=== PATIENT | male | born 1935 | race Caucasian/White ===

== ENCOUNTER 2019-07-05 11:53 | Outpatient (CLI) | payer MEDICARE, SELFPAY ==
--- NOTE | ~2019-07-05 | XR_ITS ---
[id number] 07/05/2019 12:14 Indication: Neck pain Procedure: 4 view cervical spine Comparison: No prior studies for comparison. Findings: There is accentuated cervical lordosis. There is degenerative anterolisthesis at C6-7. C7 i s not adequately visualized on the lateral view. No prevertebral soft tissue swelling. There is advan sana multilevel facet and uncinate hypertrophy. Lung apices are normal. Impression: 1: Moderate cervical spondylosis. Limited visualization of C7. Reviewed, dictated and finalized at location A. Impression: 1: Moderate cervical spondylosis. Limited visualization of C7.
--- NOTE | ~2019-07-05 | XR_ITS ---
XR shoulder RT min 2V 07/05/2019 12:14 Indication: Right shoulder pain Procedure: 4 views right shoulder Comparison: 10/21/2007 Findings: Mild polyarticular osteoarthritis of the right shoulder. No fracture or traumatic malalignm ent. No significant soft tissue abnormality. No foreign bodies. Impression: 1: Mild polyarticular osteoarthritis. Reviewed, dictated and finalized at location A. Impression: 1: Mild polyarticular osteoarthritis.
== END 2019-07-05 11:54 | disposition home or self-care (01) ==
PROVIDERS: PCP Family Medicine; Visit Provider Physician Assistant
DX: M25.519 Pain in unspecified shoulder (principal); M47.22 Other spondylosis with radiculopathy, cervical region; M19.011 Primary osteoarthritis, right shoulder
CPT/HCPCS: 72040; 73030

== ENCOUNTER 2022-02-22 09:36 | Emergency (ER) | payer MEDICARE, SELFPAY ==
[2022-02-22 09:54] VITALS: BP 146/65; PULSE 70; RESP 16; TEMP 36.1; O2SAT 98
--- NOTE | 2022-02-22 09:58 | ED.SKABFB ---
HPI - Skin/Abscess/Foreign Bdy General Chief complaint: Skin/Abscess/Foreign Body Stated complaint: rash Time Seen by Provider: 02/22/22 09:55 Source: patient Mode of arrival: ambulatory Limitations: no limitations History of Present Illness HPI narrative: Mr. Uriostegui is an 86-year-old male patient presenting to the clinic today with complaints of a rash on his back, left side and left lower abdomen. He reports that these symptoms began either Thursday or Thursday. They have gradually been spreading. He reports pain over the rash. He denies any fever or chills Related Data Home Medications Medication Instructions Recorded Confirmed sodium bicarbonate 650 mg tablet 650 mg PO DAILY 10/02/20 02/22/22 Allergies Allergy/AdvReac Type Severity Reaction Status Date / Time No Known Allergies Allergy Verified 02/22/22 09:48 Review of Systems Review of Systems: Pertinent positives per HPI. Patient denies any fever, chills, headache, visual changes, dizziness, cough, runny nose, sore throat, shortness of breath, chest pain, palpitations, nausea, vomiting, diarrhea, constipation, abdominal pain, or any urinary issues. [facility] Past Medical History Medical History Acute bronchitis Family History Family History Mother Diabetes mellitus, Onset Age: 86 Family history of congestive heart failure, Onset Age: 86 Grandparent Diabetes mellitus Sibling Diabetes mellitus Other Family history of cardiovascular disease Family history of elevated blood lipids Family history of kidney disease Social History Social History Smoking status: Never smoker Alcohol intake: never Comments At the time of my signature, I reviewed and agree with the nursing past medical, surgical, social, and family history. There is no relevant family history pertinent to the patient complaint. Exam Narrative: General: Well-developed, well nourished, in no apparent distress Head: Normocephalic, atraumatic. Cardio: Regular rate and rhythm, s1 and s2 normal, no murmur appreciated. Resp: Clear to auscultation bilaterally, no rhonchi, rales, wheezing or rubs. Integumentary: [place], warm, and dry, intact, painful red base rash with vesicles to the left side of the low back, left lateral side, and left lower abdomen. Does not cross the dermatome Course Course Emergency Course: Portions of this record may have been created with voice recognition software. Level of Care: Express Care Visit Vital Signs Vital signs: Vital Signs Temperature 36.1 C L 02/22/22 09:54 Pulse Rate 70 02/22/22 09:54 Respiratory Rate 16 02/22/22 09:54 Blood Pressure 146/65 H 02/22/22 09:54 Pulse Oximetry 98 02/22/22 09:54 Temperature 36.1 C L 02/22/22 09:54 Pulse Rate 70 02/22/22 09:54 Respiratory Rate 16 02/22/22 09:54 Blood Pressure 146/65 H 02/22/22 09:54 Pulse Oximetry 98 02/22/22 09:54 Vital signs reviewed MDM - Skin/Abscess/Foreign Bdy MDM Narrative Medical decision making narrative: At the time of visit patient is resting comfortably on the exam table. I suspect patient has herpes zoster. Prescription for Valtrex, prednisone, and lidocaine cream was sent to the pharmacy. Patient is already on a prescription for gabapentin. Supportive measures were discussed with the patient he voiced understanding of discharge instructions and agrees to treatment plan. Differential Diagnosis Differential diagnosis: Likely herpes zoster, cellulitis and contact dermatitis Discharge Plan Discharge Clinical Impression: Herpes zoster Patient Disposition: Home, Self-Care Condition: Stable Instructions: Antibiotic Form, Shingles (ED) Additional Instructions: Take medications as prescribed-Valtrex and prednisone May take Tylenol/M
== END 2022-02-22 10:07 | disposition home or self-care (01) ==
PROVIDERS: Emergency Provider Nurse Practitioner Family; PCP Family Medicine
DX: B02.9 Zoster without complications (principal)
CPT/HCPCS: 99213; G0463

== ENCOUNTER 2022-04-21 08:27 | Outpatient (CLI) | payer MEDICARE, SELFPAY ==
[2022-04-21 19:51] LABS: Anion Gap 4 mmol/L (8-16); Blood Urea Nitrogen 50 mg/dL (9-20); Calcium 8.5 mg/dL (8.4-10.2); Carbon Dioxide 27 mmol/L (22-30); Chloride 107 mmol/L (98-107); Estimated Glomerular Filt Rate 23; Glucose 86 mg/dL (65-110); Phosphorus 4.4 mg/dL (2.5-4.5); Potassium 4.9 mmol/L (3.4-5.0); Sodium 138 mmol/L (137-145)
== END 2022-04-21 08:28 | disposition home or self-care (01) ==
LOC: ANHGOSHLAB 08:28
PROVIDERS: PCP Family Medicine; Visit Provider Internal Medicine Nephrology
DX: E87.5 Hyperkalemia (principal)
CPT/HCPCS: 36415; 80069

== ENCOUNTER 2022-07-15 08:42 | Outpatient (CLI) | payer MEDICARE, SELFPAY ==
[2022-07-15 18:59] LABS: Alanine Aminotransferase 13 U/L (6-50); Alkaline Phosphatase 144 U/L (38-126); Anion Gap 7 mmol/L (8-16); Aspartate Amino Transferase 20 U/L (17-59); Bilirubin,Total 0.4 mg/dL (0.2-1.3); Blood Urea Nitrogen 57 mg/dL (9-20); Calcium 8.8 mg/dL (8.4-10.2); Carbon Dioxide 23 mmol/L (22-30); Chloride 112 mmol/L (98-107); Cholesterol 186 mg/dL (0-200); Estimated Glomerular Filt Rate 22; Glucose 88 mg/dL (65-110); HDL Direct 64 mg/dL; Potassium 5.4 mmol/L (3.4-5.0); Sodium 142 mmol/L (137-145); Triglycerides 80 mg/dL (<150)
[2022-07-15 19:10] LABS: LDL Cholesterol Direct 96 mg/dL; Parathyroid Intact 91.1 pg/mL (7.5-53.5)
[2022-07-15 19:12] LABS: Creatinine Urine 66.7 mg/dL; Total Protein Urine Random 8 mg/dL; Ur Ttl Prot Creatinine Ratio 0.12 mg/mg (0-0.20)
[2022-07-15 19:20] LABS: Anion Gap 6 mmol/L (8-16); Blood Urea Nitrogen 56 mg/dL (9-20); Calcium 8.7 mg/dL (8.4-10.2); Carbon Dioxide 23 mmol/L (22-30); Chloride 113 mmol/L (98-107); Estimated Glomerular Filt Rate 21; Glucose 87 mg/dL (65-110); Phosphorus 4.3 mg/dL (2.5-4.5); Potassium 5.5 mmol/L (3.4-5.0); Sodium 142 mmol/L (137-145)
[2022-07-15 19:22] LABS: Vitamin D 25 Hydroxy 37.7 ng/mL
[2022-07-15 19:28] LABS: Thyroid Stimulating Hormone 0.584 uIU/mL (0.465-4.680)
[2022-07-15 19:37] LABS: Basophils Percent Auto 0.7 % (0.2-1.2); Eosinophils Absolute Auto 0.2 K/mm3 (0-0.3); Eosinophils Percent Auto 5.1 % (0-4.4); Hematocrit 33.3 % (42.0-52.0); Hemoglobin 10.1 g/dL (14.0-18.0); Immature Granulocyte Absolute 0.01 K/mm3 (0.00-0.031); Immature Granulocyte Percent A 0.2 % (0-0.5); Lymphocytes Absolute Auto 1.16 K/mm3 (0.9-3.2); Lymphocytes Percent Auto 25.6 % (18.3-44.2); Mean Corpuscular HGB Conc 30.3 g/dl (32-36); Mean Corpuscular Volume 102.1 fl (80-100); Mean Platelet Volume 11.2 fl (7.4-10.4); Monocytes Absolute Auto 0.4 K/mm3 (0.1-0.6); Monocytes Percent Auto 8.4 % (2.6-8.5); Neutrophils Absolute Auto 2.7 K/mm3 (1.3-6.7); Platelet Count Result 181 k/mm3 (150-375); Red Blood Count 3.26 M/mm3 (4.6-6.20); Red Cell Distribution Width 13.6 % (11.5-14.5); White Blood Count 4.5 K/mm3 (4.5-10.0)
== END 2022-07-15 08:43 | disposition home or self-care (01) ==
LOC: ANHGOSHLAB 08:43
PROVIDERS: Physician Assistant; PCP Family Medicine; Visit Provider Internal Medicine Nephrology
DX: I12.9 Hypertensive chronic kidney disease with stage 1 through stage 4 chronic kidney disease, or unspecified chronic kidney disease (principal); N18.4 Chronic kidney disease, stage 4 (severe); E78.2 Mixed hyperlipidemia; E55.9 Vitamin D deficiency, unspecified; N25.81 Secondary hyperparathyroidism of renal origin
CPT/HCPCS: 36415; 80053; 80061; 80069; 82306; 82570; 83970; 84156; 84443; 85025

== ENCOUNTER 2022-08-01 09:09 | Outpatient (CLI) | payer MEDICARE, SELFPAY ==
[2022-08-01 18:33] LABS: Anion Gap 7 mmol/L (8-16); Blood Urea Nitrogen 50 mg/dL (9-20); Calcium 8.4 mg/dL (8.4-10.2); Carbon Dioxide 23 mmol/L (22-30); Chloride 111 mmol/L (98-107); Estimated Glomerular Filt Rate 24; Glucose 83 mg/dL (65-110); Phosphorus 3.8 mg/dL (2.5-4.5); Sodium 141 mmol/L (137-145)
== END 2022-08-01 09:10 | disposition home or self-care (01) ==
LOC: ANHGOSHLAB 09:10
PROVIDERS: Internal Medicine Nephrology; PCP Family Medicine; Visit Provider Physician Assistant
DX: N18.4 Chronic kidney disease, stage 4 (severe) (principal); E87.5 Hyperkalemia
CPT/HCPCS: 36415; 80069

== ENCOUNTER 2022-08-15 13:11 | Outpatient (CLI) | payer MEDICARE, SELFPAY ==
--- NOTE | 2022-08-15 13:20 | ECHO_ITS ---
Patient Info Name: Angel Uriostegui Age: 87 years : 1935 Gender: Male Ht: 64 in Wt: 150 lbs BSA: 1.77 m2 HR: 58 bpm BP: 157 / 81 mmHg Heart Rhythm: Sinus Rhythm Technical Quality: Good Exam Date: 08/15/2022 1:30 PM Exam Location: [facility] Patient Status: Outpatient Admit Date: 08/15/2022 Staff Ordering Physician: Lenard Araya PA-C Enterprise Integration Developer: Shelley Bennett RDCS Attending Provider: Lenard Araya PA-C Referring Physician: Marshal MORELAND; Exam Type: CA echo doppler color flow Study Info Indications R01.1 - Cardiac murmur, unspecified Complete two-dimensional, color flow and Doppler transthoracic echocardiogram is performed. Summary 1. Complete two-dimensional, color flow and Doppler transthoracic echocardiogram is performed. 2. Left ventricular chamber dimension is normal. 3. Left ventricular systolic function is normal, estimated at 60-65%. 4. The left ventricular diastolic function is abnormal. 5. E/e' 16 is elevated. 6. Left atrial chamber dimension is moderately enlarged. 7. There is severe aortic valve sclerosis. 8. There is mild to moderate aortic valve stenosis with a peak velocity of 263 cm/s, mean gradient of 17 mmHg, and aortic valve area of 1.5 cm2. 9. The mitral valve has moderately calcified annulus. 10. There is trace mitral valve regurgitation. 11. There is mild tricuspid valve regurgitation. 12. Mild pulmonary hypertension, estimated pulmonary arterial systolic pressure is 42 mmHg. 13. There is trace pulmonic regurgitation. Left Ventricle E/e' 16 is elevated. Left ventricular chamber dimension is normal. Left ventricular systolic function is normal, estimated at 60-65%. The left ventricular diastolic function is abnormal. Right Ventricle Right ventricular systolic function is normal and with normal TAPSE 2.4 cm. Right ventricular chamber dimension is normal. Left Atria Left atrial chamber dimension is moderately enlarged. Right Atria Right atrial chamber dimension is normal. Aortic Valve The aortic valve is trileaflet. There is severe aortic valve sclerosis. There is mild to moderate aortic valve stenosis with a peak velocity of 263 cm/s, mean gradient of 17 mmHg, and aortic valve area of 1.5 cm2. There is no aortic valve regurgitation. Pulmonic Valve There is trace pulmonic regurgitation. Mitral Valve The mitral valve has moderately calcified annulus. There is no mitral valve stenosis. There is trace mitral valve regurgitation. Tricuspid Valve There is mild tricuspid valve regurgitation. Mild pulmonary hypertension, estimated pulmonary arterial systolic pressure is 42 mmHg. Pericardium/Pleural There is no pericardial effusion. Inferior Vena Cava Normal inferior vena cava with >50% collapse upon inspiration consistent with normal right atrial pressure, 5 mmHg. Aorta The aortic root size at the sinus of Valsalva is normal. Left Ventricular Outflow Tract Name Value Normal LVOT 2D LVOT Diameter 2.0 cm LVOT Doppler LVOT Peak Gradient 5 mmHg LVOT Mean Gradient 2 mmHg LVOT VTI 31 cm LVOT VTI/AV VTI Ratio 0.5
== END 2022-08-15 13:12 | disposition home or self-care (01) ==
LOC: ANHCARD 13:11
PROVIDERS: PCP Family Medicine; Visit Provider Physician Assistant
DX: R01.1 Cardiac murmur, unspecified (principal); I36.1 Nonrheumatic tricuspid (valve) insufficiency; I27.20 Pulmonary hypertension, unspecified
CPT/HCPCS: 93306

== ENCOUNTER 2022-11-28 08:14 | Outpatient (CLI) | payer MEDICARE, SELFPAY ==
[2022-11-28 17:01] LABS: Creatinine Urine 65.4 mg/dL; Total Protein Urine Random 22 mg/dL; Ur Ttl Prot Creatinine Ratio 0.34 mg/mg (0-0.20)
[2022-11-28 20:16] LABS: Anion Gap 7 mmol/L (8-16); Blood Urea Nitrogen 48 mg/dL (9-20); Calcium 8.5 mg/dL (8.4-10.2); Carbon Dioxide 25 mmol/L (22-30); Chloride 109 mmol/L (98-107); Estimated Glomerular Filt Rate 22; Glucose 81 mg/dL (65-110); Phosphorus 4.5 mg/dL (2.5-4.5); Potassium 4.4 mmol/L (3.4-5.0); Sodium 141 mmol/L (137-145)
== END 2022-11-28 08:15 | disposition home or self-care (01) ==
PROVIDERS: PCP Family Medicine; Visit Provider Internal Medicine Nephrology
DX: I12.9 Hypertensive chronic kidney disease with stage 1 through stage 4 chronic kidney disease, or unspecified chronic kidney disease (principal); N18.4 Chronic kidney disease, stage 4 (severe); E87.5 Hyperkalemia
CPT/HCPCS: 36415; 80069; 82570; 84156

== ENCOUNTER 2023-02-14 11:06 | Emergency (ER) | payer MEDICARE, SELFPAY ==
--- NOTE | 2023-02-14 11:09 | ED.GENADULT ---
HPI - General Adult General Chief complaint: Recheck/Abnormal Lab/Rx Stated complaint: Blood pressure Time Seen by Provider: 02/14/23 11:34 Source: patient, RN notes reviewed and old records reviewed Mode of arrival: ambulatory Limitations: no limitations History of Present Illness HPI narrative: 87-year-old male presents to the [facility] with concerns of his blood pressure. Patient reports that his blood pressures we was 180/80 and 180/82. Patient was concerned that his blood pressure is elevated came here to have it rechecked. On arrival blood pressure 205/86. States that his blood pressure has been 160 over 80s lately, states Dr. San is happy with that. Patient states that Dr. San took him off his blood pressure medications about 2 months ago. Has been monitoring it weekly. Related Data Allergies Allergy/AdvReac Type Severity Reaction Status Date / Time No Known Allergies Allergy Verified 02/14/23 11:21 Review of Systems Review of Systems: All systems reviewed & are unremarkable except as noted in HPI and below Constitutional: Constitutional: Reports no additional constitutional complaints Eyes: Eyes: Reports no additional eye complaints ENT: Reports system reviewed and no additional complaints, except as documented Cardiovascular: Cardiovascular: Reports no additional cardiovascular complaints, Denies chest pain and Denies dyspnea Respiratory: Respiratory: Reports no additional respiratory complaints, Denies chest congestion, Denies cough and Denies dyspnea Gastrointestinal: Gastrointestinal: Reports no additional gastrointestinal complaints, Denies abdominal pain, Denies nausea and Denies vomiting Musculoskeletal: Musculoskeletal: Reports no additional musculoskeletal complaints Integumentary/Breasts: Skin/Breast: Reports system reviewed and no additional complaints, except as docu Neurologic: Reports system reviewed and no additional complaints, except as documented Psychiatric: Psychiatric: Reports no additional psychiatric complaints Allergic/Immunologic: Allergic/Immunologic: Reports no additional allergic/immunologic complaints [facility] Past Medical History Medical History Acute bronchitis Atherosclerosis of aorta Benign hypertension Cervical radiculopathy Chronic kidney disease, stage 4 (severe) Low back pain 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 Other and unspecified hyperlipidemia Primary osteoarthritis, left shoulder Primary osteoarthritis, right shoulder Psychosexual dysfunction with inhibited sexual excitement Rosacea Tension-type headache, unspecified, not intractable Family History Family History Mother Diabetes mellitus, Onset Age: 86 Family history of congestive heart failure, Onset Age: 86 Grandparent Diabetes mellitus Sibling Diabetes mellitus Other Family history of cardiovascular disease Family history of elevated blood lipids Family history of kidney disease Social History Social History Smoking status: Never smoker Alcohol intake: never Substance use: never Lack of Transportation: No Lack of Food: Never True Current Housing: I Have Housing Concerned About Future Housing: No Difficulty Paying Gas/Electric Bills: No Difficulty Paying for Meds: No Currently Unemployed: No Education: High School Diploma/GED Difficulty w/ Childcare or Family Care: No Gender identity (if verbalized by the patient): Male Comments At the time of my signature, I reviewed and agree with the nursing past medical, surgical, social, and family history. There is no relevant family history pertinent to the patient complaint. Exam Const: General: cooperative, healthy appearing, comfortable, no acute distress, well developed, alert and w
[2023-02-14 11:20] VITALS: BP 205/86; PULSE 68; RESP 16; TEMP 36.7; O2SAT 100
[2023-02-14 11:21] VITALS: BP 205/86; PULSE 68; RESP 16; TEMP 36.7; O2SAT 100
[2023-02-14 11:53] VITALS: BP 190/78
== END 2023-02-14 11:53 | disposition short-term general hospital (02) ==
PROVIDERS: Emergency Provider Nurse Practitioner; PCP Family Medicine
DX: I16.0 Hypertensive urgency (principal); I12.9 Hypertensive chronic kidney disease with stage 1 through stage 4 chronic kidney disease, or unspecified chronic kidney disease; N18.4 Chronic kidney disease, stage 4 (severe)
CPT/HCPCS: 99212; G0463

== ENCOUNTER 2023-02-14 12:18 | Emergency (ER) | payer MEDICARE, SELFPAY ==
[2023-02-14] VITALS (12 sets, daily range): BP systolic 147–201; BP diastolic 58–92; PULSE 60–77; RESP 17–20; TEMP 36.4; O2SAT 99–100
--- NOTE | 2023-02-14 12:35 | ECG_ITS ---
Measurements Intervals [place] Rate: 56 P: 48 CO: 167 QRS: -27 QRSD: 86 T: 34 QT: 401 QTc: 389 Interpretive Statements SINUS BRADYCARDIA BORDERLINE LEFT AXIS DEVIATION [QRS AXIS < -20] OTHERWISE UNREMARKABLE ECG NO PREVIOUS ECG AVAILABLE FOR COMPARISON Electronically Signed On 02-14-2023 12:43:58 BACK HAND by Rizwan Orozco M.D.
[2023-02-14 12:42] LABS: Basophils Percent Auto 0.7 % (0.2-1.2); Eosinophils Absolute Auto 0.2 K/mm3 (0-0.3); Hematocrit 39.8 % (42.0-52.0); Hemoglobin 12.2 g/dL (14.0-18.0); Immature Granulocyte Absolute 0.01 K/mm3 (0.00-0.031); Immature Granulocyte Percent A 0.2 % (0-0.5); Lymphocytes Absolute Auto 1.08 K/mm3 (0.9-3.2); Lymphocytes Percent Auto 18.7 % (18.3-44.2); Mean Corpuscular HGB Conc 30.7 g/dl (32-36); Mean Corpuscular Hemoglobin 30.6 pg (26-34); Mean Corpuscular Volume 99.7 fl (80-100); Mean Platelet Volume 10.5 fl (7.4-10.4); Monocytes Absolute Auto 0.4 K/mm3 (0.1-0.6); Monocytes Percent Auto 7.4 % (2.6-8.5); Platelet Count Result 157 k/mm3 (150-375); Red Blood Count 3.99 M/mm3 (4.6-6.20); Red Cell Distribution Width 13.6 % (11.5-14.5); White Blood Count 5.8 K/mm3 (4.5-10.0)
--- NOTE | 2023-02-14 12:52 | ED.GENADULT ---
HPI - General Adult General Chief complaint: Recheck/Abnormal Lab/Rx Stated complaint: HTN Source: patient Mode of arrival: ambulatory Limitations: no limitations History of Present Illness HPI narrative: 87 years old white male drove himself to the emergency room from urgent care because of elevated blood pressure. Patient used to be on lisinopril which stopped 2 months ago because of elevated potassium, and was told at that time that he does not need blood pressure medication. Patient been checking his blood pressure once a week. Yesterday blood pressure was 185/80, today 186/80, patient got worried went to Urgent Care blood pressure was 200+ over 100+, referred to our emergency room. On arrival to the ED blood pressure is 201/92. Patient is asymptomatic. 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 Other and unspecified hyperlipidemia Primary osteoarthritis, left shoulder Primary osteoarthritis, right shoulder Psychosexual dysfunction with inhibited sexual excitement Rosacea Tension-type headache, unspecified, not intractable Family History Family History Mother Diabetes mellitus, Onset Age: 86 Family history of congestive heart failure, Onset Age: 86 Grandparent Diabetes mellitus Sibling Diabetes mellitus Other Family history of cardiovascular disease Family history of elevated blood lipids Family history of kidney disease Social History Social History Smoking status: Never smoker Alcohol intake: never Substance use: never Lack of Transportation: No Lack of Food: Never True Current Housing: I Have Housing Concerned About Future Housing: No Difficulty Paying Gas/Electric Bills: No Difficulty Paying for Meds: No Currently Unemployed: No Education: High School Diploma/GED Difficulty w/ Childcare or Family Care: No Gender identity (if verbalized by the patient): Male Exam Narrative: General appearance: Well-developed, well-nourished Skin: Normal color Head: Normocephalic, nontraumatic Eyes: Clear conjunctiva ENT: Oropharynx normal, ears normal, nose normal Neck: Supple, nontender Chest and respiratory: Airway patent, no respiratory distress, no accessory muscle use Heart: Regular rate/rhythm Abdomen: Soft, nontender, no organomegaly, quiet bowel sounds Vascular: Normal peripheral pulses, normal capillary refill. Musculoskeletal: Normal range of motion, nontender back Neurologic: Alert and oriented ?3, [employer] is normal as tested, no gross motor deficit Course Course Emergency Course: NO Reevaluation(s) Reevaluation #1: NO NEW CHANGES COMPARED TO ON ARRIVAL TO THE ED. Date: 02/14/23 Time: 15:11 Consultations Consultation #1: DR WU RECOMMENDS HYDRALAZINE 25 MG T.I.D., FAMILY PHYSICIAN FOLLOW-UP IN 5 DAYS Date: 02/14/23 Time: 15:10 Vital Signs Vital signs: Vital Signs Temperature 36.4 C 02/14/23 12:25 Pulse Rate 62 02/14/23 12:25 Respiratory Rate 20 02/14/23 12:25 Blood Pressure 201/92 H 02/14/23 12:25 Pulse Oximetry 100 1
[2023-02-14 12:54] LABS: Alanine Aminotransferase 17 U/L (6-50); Albumin Level 4.6 g/dL (3.5-5.1); Alkaline Phosphatase 160 U/L (38-126); Anion Gap 10 mmol/L (8-16); Aspartate Amino Transferase 25 U/L (17-59); Bilirubin,Total 0.5 mg/dL (0.2-1.3); Blood Urea Nitrogen 46 mg/dL (9-20); Carbon Dioxide 22 mmol/L (22-30); Chloride 111 mmol/L (98-107); Estimated CRCL calculation 15 ml/min; Estimated Glomerular Filt Rate 23; Glucose 94 mg/dL (65-110); Potassium 4.7 mmol/L (3.4-5.0); Sodium 143 mmol/L (137-145)
[2023-02-14] MEDS: hydrALAZINE HCL 20 MG/ML VIAL IV PUSH (13:11)
== END 2023-02-14 15:26 | disposition home or self-care (01) ==
PROVIDERS: Emergency Medicine; Emergency Provider Emergency Medicine; PCP Family Medicine
DX: I12.9 Hypertensive chronic kidney disease with stage 1 through stage 4 chronic kidney disease, or unspecified chronic kidney disease (principal); N18.4 Chronic kidney disease, stage 4 (severe); I70.0 Atherosclerosis of aorta; E78.5 Hyperlipidemia, unspecified; M19.012 Primary osteoarthritis, left shoulder; M19.011 Primary osteoarthritis, right shoulder; Z85.20 Personal history of malignant neoplasm of unspecified respiratory organ; R00.1 Bradycardia, unspecified
CPT/HCPCS: 36415; 80053; 85025; 93005; 96374; 99284; J0360

== ENCOUNTER 2023-04-04 08:17 | Outpatient (CLI) | payer MEDICARE, SELFPAY ==
[2023-04-04 09:23] LABS: Albumin Level 3.9 g/dL (3.5-5.1); Anion Gap 8 mmol/L (8-16); Blood Urea Nitrogen 56 mg/dL (9-20); Calcium 9.3 mg/dL (8.4-10.2); Carbon Dioxide 19 mmol/L (22-30); Chloride 114 mmol/L (98-107); Estimated Glomerular Filt Rate 21; Glucose 96 mg/dL (65-110); Phosphorus 4.2 mg/dL (2.5-4.5); Potassium 4.9 mmol/L (3.4-5.0); Sodium 141 mmol/L (137-145)
[2023-04-04 09:31] LABS: Vitamin D 25 Hydroxy 44.6 ng/mL
[2023-04-04 09:39] LABS: Creatinine Urine 58.8 mg/dL; Total Protein Urine Random 25 mg/dL; Ur Ttl Prot Creatinine Ratio 0.43 mg/mg (0-0.20)
[2023-04-04 10:37] LABS: Parathyroid Intact 67.2 pg/mL (7.5-53.5)
== END 2023-04-04 08:18 | disposition home or self-care (01) ==
LOC: ANHLAB 08:23
PROVIDERS: PCP Family Medicine; Visit Provider Internal Medicine Nephrology
DX: E55.9 Vitamin D deficiency, unspecified (principal); I12.9 Hypertensive chronic kidney disease with stage 1 through stage 4 chronic kidney disease, or unspecified chronic kidney disease; N18.4 Chronic kidney disease, stage 4 (severe); N25.81 Secondary hyperparathyroidism of renal origin
CPT/HCPCS: 36415; 80069; 82306; 82570; 83970; 84156

== ENCOUNTER 2023-07-31 10:46 | Outpatient (CLI) | payer MEDICARE, SELFPAY ==
[2023-07-31 15:38] LABS: Anion Gap 8 mmol/L (4-12); Blood Urea Nitrogen 50 mg/dL (9-20); Calcium 8.4 mg/dL (8.4-10.2); Carbon Dioxide 20 mmol/L (22-30); Chloride 113 mmol/L (98-107); Estimated Glomerular Filt Rate 22; Glucose 92 mg/dL (65-110); Phosphorus 4.3 mg/dL (2.5-4.5); Sodium 141 mmol/L (137-145)
[2023-07-31 16:26] LABS: Creatinine Urine 70.4 mg/dL; Total Protein Urine Random 32 mg/dL; Ur Ttl Prot Creatinine Ratio 0.45 mg/mg (0-0.20)
== END 2023-07-31 10:47 | disposition home or self-care (01) ==
LOC: ANHGOSHLAB 10:47
PROVIDERS: PCP Family Medicine; Visit Provider Internal Medicine Nephrology
DX: I12.9 Hypertensive chronic kidney disease with stage 1 through stage 4 chronic kidney disease, or unspecified chronic kidney disease (principal); N18.4 Chronic kidney disease, stage 4 (severe)
CPT/HCPCS: 36415; 80069; 82570; 84156

== ENCOUNTER 2023-12-07 15:51 | Outpatient (CLI) | payer MEDICARE, SELFPAY ==
[2023-12-07 17:16] LABS: Albumin Level 3.9 g/dL (3.5-5.1); Anion Gap 8 mmol/L (4-12); Blood Urea Nitrogen 49 mg/dL (9-20); Calcium 8.3 mg/dL (8.4-10.2); Carbon Dioxide 20 mmol/L (22-30); Chloride 112 mmol/L (98-107); Estimated Glomerular Filt Rate 22; Glucose 111 mg/dL (65-110); Phosphorus 4.5 mg/dL (2.5-4.5); Sodium 140 mmol/L (137-145)
[2023-12-07 17:27] LABS: Parathyroid Intact 108.4 pg/mL (14.5-75.2)
[2023-12-07 17:31] LABS: Creatinine Urine 94.3 mg/dL; Total Protein Urine Random 26 mg/dL; Ur Ttl Prot Creatinine Ratio 0.28 mg/mg (0-0.20)
[2023-12-07 17:32] LABS: Vitamin D 25 Hydroxy 45.7 ng/mL
== END 2023-12-07 15:52 | disposition home or self-care (01) ==
LOC: ANHGOSHLAB 15:52
PROVIDERS: PCP Family Medicine; Visit Provider Internal Medicine Nephrology
DX: I12.9 Hypertensive chronic kidney disease with stage 1 through stage 4 chronic kidney disease, or unspecified chronic kidney disease (principal); N18.4 Chronic kidney disease, stage 4 (severe); N25.81 Secondary hyperparathyroidism of renal origin; E55.9 Vitamin D deficiency, unspecified
CPT/HCPCS: 36415; 80069; 82306; 82570; 83970; 84156

== ENCOUNTER 2023-12-10 13:50 | Outpatient (CLI) | payer MEDICARE, SELFPAY ==
--- NOTE | ~2023-12-10 | DEXA_ITS ---
Bone Density Report Name: COLT CLINE Age: 88 Sex: Male Ethnicity: White Date of : 1935 Indication: hyperparathyroidism; end stage renal disease; Referring Provider: YUSUF GURROLA Study: Bone densitometry was performed. Exam Date: December 10, 2023 Accession number: [id number] Bone Density: Region BMD T-score Z-score Classification AP Spine(L1-L4) 1.089 0.0 1.3 Normal Femoral Neck (Left) 2.450 11.2 12.9 Normal Total Hip (Left) 2.458 9.4 10.7 Normal Femoral Neck (Right) 0.616 -2.3 -0.6 Osteopenia Total Hip (Right) 0.955 -0.5 0.7 Normal Femoral Neck Mean 1.533 4.4 6.1 Normal Total Hip Mean 1.706 4.5 5.7 Normal World Health Organization criteria for BMD impression classify patients as: Normal (T-score at or above -1.0), Osteopenia (T-score between -1.0 and -2.5), or Osteoporosis (T-score at or below -2.5). 10-year Fracture Risk(1): Major Osteoporotic Fracture 9.3% Hip Fracture 4.2% Reported Risk Factors: [place] (), Neck BMD=0.616, BMI=26.2 (1) FRAX(R) Version 3.08. Fracture probability calculated for an untreated patient. Fracture probability may be lower if the patient has received treatment. Clinical Information Provided by Patient: Has the following medical conditions: End stage renal disease, Hyperparathyroidism No regular weight bearing exercise Drinks caffeinated beverages Impression: The patient has low bone mass, based on the Right Femoral Neck T-score. Discussion: BONE DENSITY IS LOW AT ONE OR MORE SKELETAL SITES. This patient's lowest T-score is low at one or more skeletal sites. It meets the World Health Organization's (WHO) criteria for ?low bone mass? (T-score between -1.0 and -2.5). The patient's 10-year risk of fracture as calculated by FRAX is less than the threshold where pharmacological therapy is recommended by the National Osteoporosis Foundation (NOF). However, all treatment decisions require clinical judgment and consideration of individual patient factors, including patient preferences, comorbidities, previous drug use, risk factors not captured in the FRAX model (e.g., frailty, falls, vitamin D deficiency, increased bone turnover, interval significant decline in bone density) and possible under or overestimation of fracture risk by FRAX. The patient should follow a healthful lifestyle (good nutrition with adequate calcium and vitamin D, and appropriate weight-bearing exercise). Follow-Up: Consider repeating this study in 2 to 3 years to reassess this patient's status, or sooner if there is some new clinical indication. Reported by: WES on 12/10/2023 2:18:00 PM. Reviewed, dictated and finalized at location ADrea SPENCER
== END 2023-12-10 13:51 | disposition home or self-care (01) ==
PROVIDERS: PCP Family Medicine; Visit Provider Family Medicine
DX: M85.852 Other specified disorders of bone density and structure, left thigh (principal); M88.852 Osteitis deformans of left thigh; N18.30 Chronic kidney disease, stage 3 unspecified; N25.81 Secondary hyperparathyroidism of renal origin
CPT/HCPCS: 77080

== ENCOUNTER 2024-04-08 12:44 | Outpatient (CLI) | payer MEDICARE, SELFPAY ==
--- OUTSIDE RECORDS SUMMARY | 2024-04-08 12:54 | XMS_ITS | Clinical Summary ---
Author Organization [facility] Address [address] [place] [address] Care Team Providers Care Solar Tech Name Role Phone Unavailable Primary Care Provider Unavailabl e Social History Tobacco Use Types Packs/Day Years Used Date Smoking Tobacco: Never Assessed Sex and Gender Information Value Date Recorded Sex Assigned at Not on file Legal Sex Male 5:10 PM CDT Gender Identity Not on file Sexual Orientation Not on file Plan of Treatment Health Maintenance Due Date Last Done Comments DTaP, Tdap and Td Vaccines ( 1 - Tdap) 1956 Zoster Vaccines (1 of 2) 07/30/1987 Pneumococcal Vaccine: 65+ Ye ars (1 of 1 - PCV) 2002 RSV Immunization or 60+ Years (1 - 1-dose 75+ series) 2012 COVID-19 Vaccine ( - 2023-2 5 season) 2023 Influenza Adult (#1) 2023 Meningococcal B Vaccine Aged Out No l onger eligible based on patient's age to complete this topic Meningococcal Vaccine Aged Out No yasmin julianna eligible based on patient's age to complete this topic RSV Immunizations Under 20 Months Aged Out No longer eligible based on patient's age to complete this topic
--- OUTSIDE RECORDS SUMMARY | 2024-04-08 12:54 | XMS_ITS | Referral Summary ---
Author Organization [facility] [address] [place] Address [address] [place] [address] Care Team Providers Care Electromechanisms Design Drafter Name Role Phone Unknown, Notinfile Primary Care Provider Unavail able Allergies No known active allergies Medications bimatoprost (Lumigan) 0.01 % ophthalmic drops 04/19/2020 Ac tive docosahexaenoic acid-epa 120-180 mg capsule Take by mouth 08/26/2011 Active FLUoxetine (PROzac) 20 mg capsule TK 1 C PO D 08/17/2019 Active gabapentin (NEURONTIN) 300 mg capsule 11/27/2021 Active levothyroxine (SYNTHROID) 50 mcg tablet Take 50 mcg by mouth daily 09/24/2021 Active pravastatin (PRAVACHOL) 20 mg tablet Take 20 mg by mouth daily 09/24/2021 Active quinapriL-hydroc hlorothiazide (ACCURETIC) 10-12.5 mg per tablet Take 1 tablet by mouth daily 09/28/2021 Active sodium bicarbonate 650 mg tablet 10/08/2021 Active Active Problems No known active problems Social History Tobacco Use Types Packs/Day Years Used Date Smoking Tobacco: Never Assessed Sex and Gender Information Value Date Recorded Sex Assigned at Not on file 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 Gender Identity Not on file Sexual Orientation Not on file Last Filed Vital Signs Vital Sign Reading Time Taken Comments Blood Pressure 138/57 12/02/2021 2:07 PM CDT Pulse 90 12/02/2021 2:07 PM CDT Temperature 36.7 C (98.1 F) 12/02/2021 2:07 PM CDT Respiratory Rate 16 12/02/2021 2:07 PM CDT Oxygen Saturation 99% 12/02/2021 2:07 PM CDT Inhaled Oxygen Concentration - - Weight 66.2 kg (146 lb) 12/02/2021 2:07 PM CDT Height 162.6 cm (5' 4 ) 12/02/2021 2:07 PM CDT Body Mass Index 25.06 12/02/2021 2:07 PM CDT Plan of Treatment Not on file Insurance [facility] Care Teams Electromechanisms Design Drafter Relationship Specialty Start Date End Date Unknown, Notinfile PCP - General 12/02/21
--- OUTSIDE RECORDS SUMMARY | 2024-04-08 12:54 | XMS_ITS | Continuity of Care Document ---
Author Organization [facility] Address [address] [place] [address] [place] [address] Phone Care Team Providers Care Consulting Marine Engineer Name Role Phone Constantine Kumar Unavailable Unavailable [...] Diagnoses Date Provider Providers Copied on Encounter [facility], [address] [place] [address] [address], [place], [place], [id number], [place] tel:[phone] [facility] No Information 0 Stacy Fitch. 2421 [facility] [address], [address], [place]. tel:[phone] Referring Provider: Aria Arvizu OD, [address] [place] [address], [address]. tel:[phone] [facility], [address] [place] [address] [address], [place], [place], [id number], [place] tel:[phone] [facility] No Information 0 8-201 0 Krishnasamy Constantine. [address], [facility], . tel:[phone] Referring Provider: Aria Arvizu OD, [address] [place] [address], [address]. tel:[phone] [facility], [address] [place] [address] [address], [place], [place], [id number], tel:[phone] [facility] No Information Dec-2 3-200 9 Krishnasamy Constantine. [facility] [address], [facility], . tel:[phone] Referring Provider: Aria Arvizu OD, [address] [place] [address], [facility]. tel:[phone] [facility], [address] [place] [address] [address], [place], [id number], tel:[phone] [facility] No Information Dec-1 1-200 9 Krishnasamy Constantine. [facility] [address], [facility], [place]. tel:[phone] Referring Provider: Aria Arvizu OD, [address] [place] [address], [address]. tel:[phone] [facility], [address] [place] [address] [address], [place], [place], [id number], tel:[phone] [facility] No Information Dec-1 0-200 9 Krishnasamy Constantine. [facility] [address], [facility], [place]. tel:[phone] Referring Provider: Aria Arvizu OD, [address] [place] [address], [address]. tel:[phone] Office/outpat ient Visit, [facility], [address] [place] [address] [address], [place], [place], [id number], [place] tel:[phone] [facility] No Information 3-200 9 Krishnasamy Constantine. [address] [facility] [address], [place], [address], [place]. tel:[phone] Referring Provider: Constantine perkins, [address] [facility] [address], [place], [address]. tel:[phone] [facility], [address] [place] [address] [address], [place], [place], [address], [place] tel:[phone] [facility] No Information 6-200 8 Krishnasamy Constantine. [facility] [address], [place], [facility], [place]. tel:[phone] Referring Provider: Aria Arvizu OD, [address], [address]. tel:[phone] [facility], [address] [place] [address] [address], [place], [place], [address], [place] tel:[phone] [facility] No Information 1-200 8 Krishnasamy Constantine. [facility] [address], [address], [place]. tel:[phone] Referring Provider: Aria Arvizu OD, [address], [address]. tel:[phone] [facility], [address] [place] [address] [address], [place], [place], [address], [place] tel:[phone] [facility] No Information 0-200 8 Krishnasamy Constantine. [facility] [address], [address], [place]. tel:[phone] Referring Provider: Aria Arvizu OD, [address], [address]. tel:[phone] [facility], [address] [place], [place] [address] [address], [place], [place], [id number], [place] tel:[phone] [facility] No Information 8 Stacy Kellyhil. [address] [employer] [address], [address], [place]. tel:[phone] Referring Provider: Aria Arvizu , [address] [place], [address]. tel:[phone] Family History Family Member Type Diagnosis Age At Onset No Information Payers Payer name Insurance type Covered democrat ID Authoriza tion(s) No Information Social History [...]
--- OUTSIDE RECORDS SUMMARY | 2024-04-08 12:54 | XMS_ITS | Clinical Summary ---
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 Gender Identity Not on file Sexual Orientation Not on file Obstetrics History Last Filed Vital Signs Vital Sign Reading [...] 12/02/2021 2:07 PM CDT Plan of Treatment Health Maintenance Due Date Last Done Comments Depression Screening 1937 Fall Risk Assessment 1935 DTaP/Tdap/Td Vaccine (1 - Tdap) 1948 Hepatitis B Screening 07/30/1955 Zoster Vaccine (1 of 2) 07/30/1987 Well Visit 65+ 2002 Pneumococcal vaccine 65+ (2 of 2 - PPSV23 or PCV20) 06/12/2016 06/13/2015 Influenza Vaccine (#1) 2023 9, 06/13/2015, 11/14/2013 Insurance [employer] Care Teams Barrer And Tacker Relationship Specialty Start Date End Date Unknown, Notinfile PCP - General 12/02/21
--- OUTSIDE RECORDS SUMMARY | 2024-04-08 12:54 | XMS_ITS | Clinical Summary ---
Author Organization [facility] Address [address] [place] [address] Phone Care Team Providers Care Slasher Machine Operator Name Role Phone Rizwan San MD Primary Care Provider [phone] Allergies No known active allergies Medications Medication Sig Dispensed Refills Start Date End Date Status Multiple Vitamin (MULTI-DAY) tablet 1 tab/cap qday 08/26/2011 Ac tive omega-3 (FISH OIL) 1000 MG capsule 1 tab/cap qday 08/26/2011 Activ e pravastatin (PRAVACHOL) 20 MG tablet TK 1 T PO QHS 1 12/16/2018 Active quinapril-hydroCHLOROt hiazide (ACCURETIC) 10-12.5 MG per tablet TK 1 T PO ONCE A D 3 11/06/2018 Active gabapentin (NEURONTIN) 100 MG capsule TK 1 C PO D 08/22/2019 Active FLUoxetine (PROzac) 20 MG capsule TK 1 C PO D 08/17/2019 Active Lumigan 0.01 % ophthalmic drops 04/19/2020 Active levothyroxine (SYNTHROID) 50 MCG tablet Take 50 mcg by mouth 1 (one) time each day 08/21/2020 Active gabapentin (NEURONTIN) 300 MG capsule Take 600 mg by mouth every night 03/18/2021 Active sodium bicarbonate 650 MG tablet TAKE 1 TABLET(650 MG) BY MOUTH TWICE DAILY 60 tablet 6 12/16/2021 Active Active Problems Problem Noted Date Diagnosed Date Hyperkalemia 03/31/2018 Chronic kidney disease, stage 4 (severe) 016 Hypertensive chronic kidney disease with stage 1 through stage 4 chronic kidney disease, or unspecified chronic kidney disease 12/13/2014 Other hyperlipidemia 12/12/2014 Overview (05/15/2018): Converted unresolved ICD9, potential mismatch. Chronic kidney disease, stage 3 (moderate) 08/18 Essential (primary) hypertension 08/19/2011 Immunizations Name Administration Dates Next Due Influenza TIV (IM) 06/13/2015,11/14/2013 Influenza, Injectable, Quadrivalent 11/30/2018 Pneumococcal Conjugate 13-Valent 06/13/2015 Sars-cov-2, Unspecified 06/25/2020 Family History Medical History Relation Comments Diabetes mellitus Sibling Kidney disease Neg Hx Kidney stone Neg Hx Relation Status Comments Sibling Social History Tobacco Use Types Packs/Day Years Used Date Smoking Tobacco: Never Smokeless Tobacco: Never Alcohol Use Standard Drinks/Week Comments No 0 (1 standard drink = 0.6 oz pur e alcohol) Sex and Gender Information Value Date Recorded Sex Assigned at Not on file Gender Identity Not on file Sexual Orientation Not on file Last Filed Vital Signs Vital Sign Reading Time Taken Comments Blood Pressure 140/82 11/13/2021 11:44 AM CDT Pulse - - Temperature 36.8 C (98.3 F) 11/13/2021 11:44 AM CDT Respiratory Rate 18 11/13/2021 11:44 AM CDT Oxygen Saturation - - Inhaled Oxygen Concentration - - Weight 67.1 kg (148 lb) 11/13/2021 11:44 AM CDT Height 162.6 cm (5' 4 ) 11/13/2021 11:44 AM CDT Body Mass Index 25.4 11/13/2021 11:44 AM CDT Plan of Treatment Health Maintenance Due Date Last Done Comments Pneumococcal PPSV23/PCV13 65 + Years / High and Highest Risk (2 of 4 - PPSV23 or PCV20) 08/08/2015 06/13/2015 Influenza Vaccine (#1) 2023 06/13/2015, 2013 Care Teams Slasher Machine Operator Relationship Specialty Start Date End Date Rizwan San MD [address] [place] [address] PCP - General Internal Medicine 11/13/21
[2024-04-08 14:16] LABS: Anion Gap 11 mmol/L (4-12); Blood Urea Nitrogen 52 mg/dL (9-20); Calcium 8.4 mg/dL (8.4-10.2); Carbon Dioxide 20 mmol/L (22-30); Chloride 112 mmol/L (98-107); Estimated Glomerular Filt Rate 21; Glucose 93 mg/dL (65-110); Phosphorus 4.7 mg/dL (2.5-4.5); Potassium 5.1 mmol/L (3.4-5.0); Sodium 143 mmol/L (137-145)
[2024-04-08 15:12] LABS: Creatinine Urine 112.9 mg/dL; Total Protein Urine Random 46 mg/dL; Ur Ttl Prot Creatinine Ratio 0.41 mg/mg (0-0.20)
== END 2024-04-08 12:45 | disposition home or self-care (01) ==
LOC: ANHGOSHLAB 12:47
PROVIDERS: PCP Family Medicine; Visit Provider Internal Medicine Nephrology
DX: I12.9 Hypertensive chronic kidney disease with stage 1 through stage 4 chronic kidney disease, or unspecified chronic kidney disease (principal); N18.4 Chronic kidney disease, stage 4 (severe)
CPT/HCPCS: 36415; 80069; 82570; 84156

== ENCOUNTER 2024-08-04 14:14 | Outpatient (CLI) | payer MEDICARE, SELFPAY ==
--- OUTSIDE RECORDS SUMMARY | 2024-08-04 14:57 | XMS_ITS | Clinical Summary ---
Author Organization [facility] Address [address] [place] [address] Phone Care Team Providers Care Store Administrative Assistant Name Role Phone Rizwan San MD Primary Care Provider [phone] Allergies No known active allergies Medications Multiple Vitamin (MULTI-DAY) tablet 1 tab/cap qday 08/26/2011 Active omega-3 (FISH OIL) 1000 MG capsule 1 tab/cap qday 08/26/2011 Active pravastatin (PRAVACHOL) 20 MG tablet TK 1 T PO QHS 1 12/16/2018 Active quinapril-hydroCH LOROthiazide (ACCURETIC) 10-12.5 MG per tablet TK 1 T PO ONCE A D 3 11/06/2018 Active gabapentin (NEURONTIN) 100 MG capsule TK 1 C PO D 08/22/2019 Active FLUoxetine (PROzac) 20 MG capsule TK 1 C PO D 08/17/2019 Active Lumigan 0.01 % ophthalmic drops 04/19/2020 Ac tive levothyroxine (SYNTHROID) 50 MCG tablet Take 50 [...] (moderate) 08/18 Essential (primary) hypertension 08/19/2011 Immunizations Immunization Administration Dates Next Due Influenza TIV (IM) [...] at Not on file Legal Sex Male 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 MST Gender Identity Not on file Sexual Orientation [...] 11:44 AM CDT Height 162.6 cm (5' 4) 11/13/2021 11:44 AM CDT Body Mass Index 25.4 11/13/2021 11:44 AM CDT Plan of Treatment Health Maintenance Due Date Last Done Comments Pneumococcal PPSV23/PCV13 65 + Years / Low and Medium Risk (2 of 3 - PPSV23) 06/12/2016 06/13/2015 Influenza Vaccine (Season Ended) 2024 06/13/19 16, 11/14/2013 Insurance [employer] Care Teams Store Administrative Assistant Relationship Specialty Start Date End Date Rizwan San MD [address] [place] [phone] PCP - General Internal Medicine 11/13/21
--- OUTSIDE RECORDS SUMMARY | 2024-08-04 14:57 | XMS_ITS | Referral Summary ---
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
--- OUTSIDE RECORDS SUMMARY | 2024-08-04 14:57 | XMS_ITS | Clinical Summary ---
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
--- OUTSIDE RECORDS SUMMARY | 2024-08-04 14:57 | XMS_ITS | Continuity of Care Document ---
Author Organization [facility] Address [address] [place] [address] [place] [address] Phone Care Team Providers Care Cyber Analyst Name Role Phone Constantine Kumar Unavailable Unavailable [...] Diagnoses Date Provider Providers Copied on Encounter [facility], [address] [place] [address] [address], [place], [place], [id number], [place] tel:[phone] [facility] No Information 0 Stacy Fitch. [address] [facility] [address], [address], [place]. tel:[phone] Referring Provider: Aria Arvizu OD, [address] [place] [address], [address]. tel:[phone] [facility], [address] [place] [address] [address], [place], [place], [address], [place] tel:[phone] [facility] No Information 0 8-201 0 Krishnasamy Constantine. [address], [facility], . tel:[phone] Referring Provider: Aria Arvizu OD, [address] [place] [address], [address]. tel:[phone] [facility], [address] [place] [address] [address], [place], [place], [id number], tel:[phone] [facility] No Information Dec-2 3-200 9 Krishnasamy Constantine. [facility] [address], [facility], . tel:[phone] Referring Provider: Aria Arvizu OD, [address] [place] [address], [facility]. tel:[phone] [facility], [address] [place] [address] [address], [place], [id number], tel:[phone] [facility] No Information Dec-1 1-200 9 Krishnasamy Constantine. [facility] [address], [facility], [place]. tel:[phone] Referring Provider: Aria Arvizu OD, [address] [place] [address], [address]. tel:[phone] [facility], [address] [place] [address] [address], [place], [place], [address], tel:[phone] [facility] No Information Dec-1 0-200 9 Krishnasamy Constantine. [facility] [address], [facility], [place]. tel:[phone] Referring Provider: Aria Arvizu OD, [address] [place] [address], [address]. tel:[phone] Office/outpat ient Visit, [facility], [address] [place] [address] [address], [place], [place], [address], [place] tel:[phone] [facility] No Information 3-200 9 Krishnasamy Constantine. [address] [facility] [address], [place], [address], [place]. tel:[phone] Referring Provider: Constantine perkins, [address] [facility] [address], [place], [address]. tel:[phone] [facility], [address] [place] [address] [address], [place], [place], [address], [place] tel:[phone] [facility] No Information 6-200 8 Krishnasamy Constantine. [facility] [address], [place], [facility], [place]. tel:[phone] Referring Provider: Aria Arvizu OD, [address] [place], [address]. tel:[phone] [facility], [address] [place] [address] [address], [place], [place], [address], [place] tel:[phone] [facility] No Information 1-200 8 Krishnasamy Constantine. [facility] [address], [address], [place]. tel:[phone] Referring Provider: Aria Arvizu OD, [address] [place], [address]. tel:[phone] [facility], [address] [place] [address] [address], [place], [place], [address], [place] tel:[phone] [facility] No Information 0-200 8 Krishnasamy Constantine. [facility] [address], [address], [place]. tel:[phone] Referring Provider: Aria Arvizu OD, [address] [place], [address]. tel:[phone] [facility], [address] [place], [place] [address]st [address], [place], [place], [id number], [place] tel:[phone] [facility] No Information 8 Stacy Kellyhil. [address] [place] [address], [address], [place]. tel:[phone] Referring Provider: Aria Arvizu , [address] [place], [address]. tel:[phone] Family History Family Member Type Diagnosis Age At Onset No Information Payers Payer name Insurance type Covered republican ID Authoriza tion(s) No Information Social History [...]
[2024-08-04 20:31] LABS: Albumin Level 4.1 g/dL (3.5-5.1); Anion Gap 8 mmol/L (4-12); Blood Urea Nitrogen 53 mg/dL (9-20); Calcium 8.7 mg/dL (8.4-10.2); Carbon Dioxide 24 mmol/L (22-30); Chloride 109 mmol/L (98-107); Estimated Glomerular Filt Rate 19; Glucose 123 mg/dL (65-110); Potassium 4.8 mmol/L (3.4-5.0); Sodium 141 mmol/L (137-145)
[2024-08-04 20:36] LABS: Parathyroid Intact 118.4 pg/mL (14.5-75.2)
[2024-08-05 06:38] LABS: Creatinine Urine 112.5 mg/dL; Total Protein Urine Random 41 mg/dL; Ur Ttl Prot Creatinine Ratio 0.36 mg/mg (0-0.20)
== END 2024-08-04 14:15 | disposition home or self-care (01) ==
LOC: ANHGOSHLAB 14:15
PROVIDERS: PCP Internal Medicine Nephrology; Visit Provider Internal Medicine Nephrology
DX: I12.9 Hypertensive chronic kidney disease with stage 1 through stage 4 chronic kidney disease, or unspecified chronic kidney disease (principal); N18.4 Chronic kidney disease, stage 4 (severe); N25.81 Secondary hyperparathyroidism of renal origin; E55.9 Vitamin D deficiency, unspecified
CPT/HCPCS: 36415; 80069; 82306; 82570; 83970; 84156

== ENCOUNTER 2024-11-30 14:01 | Outpatient (CLI) | payer MEDICARE, SELFPAY ==
--- OUTSIDE RECORDS SUMMARY | 2009-04-25 08:45 | XMS_ITS | Continuity of Care Document ---
Author Organization [facility] Address [address] [place] [address] [place] [address] Phone Care Team Providers Care Certified Home Health Aide Name Role Phone Constantine Kumar Unavailable Unavailable Procedures Procedure Date Post-op Follow-up Visit Post-op Follow-up Visit Post-op Follow-up Visit Post-op Follow-up Visit Remove Cataract, Insert Lens Office/outpatient Visit, Est IOLMaster-Professional Post-op Follow-up Visit Post-op Follow-up Visit Remove Cataract, Insert Lens Eye Exam, New Patient IOLMaster Advance Directives Directive Yes / No Effective Date File Name No Information Encounters Encounter Description Practice Location Reason(s) For Visit Diagnoses Date Provider Providers Copied on Encounter [facility], [address] [place] [address] [address], [place], [place], [id number], [place] tel:[phone] [facility] No Information 0 Stacy Fitch. [address] [facility] [address], [address], [place]. tel:[phone] Referring Provider: Aria Arvizu OD, [address] [place] [address], [address]. tel:[phone] [facility], [address] [place] [address] [address], [place], [place], [id number], [place] tel:[phone] [facility] No Information 0 8-201 0 Krishnasamy Constantine. [address], [facility], . tel:[phone] Referring Provider: Aria Arvizu OD, [address] [place] [address], [address]. tel:[phone] [facility], [address] [place] [address] [address], [place], [place], [id number], tel:[phone] [facility] No Information Dec-2 3-200 9 Krishnasamy Constantine. [facility] [address], [facility], . tel:[phone] Referring Provider: Aria Arvizu OD, [address] [place] [address], [facility]. tel:[phone] [facility], [address] [place] [address] [address], [place], [id number], tel:[phone] [facility] No Information Dec-1 1-200 9 Krishnasamy Constantine. [facility] [address], [facility], [place]. tel:[phone] Referring Provider: Aria Arvizu OD, [address] [place] [address], [address]. tel:[phone] [facility], [address] [place] [address] [address], [place], [place], [id number], tel:[phone] [facility] No Information Dec-1 0-200 9 Krishnasamy Constantine. [facility] [address], [facility], [place]. tel:[phone] Referring Provider: Aria Arvizu OD, [address] [place] [address], [address]. tel:[phone] Office/outpat [place] Visit, [facility] [address] [place] [address] [address], [place], [place], [id number], [place] tel:[phone] [facility] No Information 3-200 9 Krishnasamy Constantine. [address] [facility] [address] [place], [address], [place]. tel:[phone] Referring Provider: Constantine perkins, [address] [facility] [address] [place], [address]. tel:[phone] [facility], [address] [place] [address] [address], [place], [place], [id number], [place] tel:[phone] [facility] No Information 6-200 8 Krishnasamy Constantine. [facility] [address] [place], [place], [facility], [place]. tel:[phone] Referring Provider: Aria Arvizu OD, [address] [place], [address]. tel:[phone] [facility], [address] [place] [address] [address], [place], [place], [id number], [place] tel:[phone] [facility] No Information 1-200 8 Krishnasamy Constantine. [facility] [address], [address], [place]. tel:[phone] Referring Provider: Aria Arvizu OD, [address] [place], [address]. tel:[phone] [facility], [address] [place] [address] [address], [place], [place], [id number], [place] tel:[phone] [facility] No Information 0-200 8 Krishnasamy Constantine. [facility] [address], [address], [place]. tel:[phone] Referring Provider: Aria Arvizu OD, [address] [place], [address]. tel:[phone] [facility], [address] [place], [place] [address]st [address], [place], [place], [id number], [place] tel:[phone] [facility] No Information 8 Stacy Kellyhil. [address], [address], [place]. tel:[phone] Referring Provider: Aria Arvizu , [address] [place], [address]. tel:[phone] Family History Family Member Type Diagnosis Age At Onset No Information Payers Payer name Insurance type Covered alliance party ID Authoriza tion(s) No Information Social History Type Description Quantity Date Captured Comments Sex Male Smoking Status No Information Chief Complaint And Reason For Visit No Information Reason For Referral Reason For Referral No Information History Of Present Illness Encounter Date Complaint History Of Prese nt Illness No Information Functional Status Date Functional Assessmen t No Information Instructions Date Instruction Additional Infor mation No Information Assessments Type Assessment Date No Information Patient Care Teams Name Effective Dates (start - stop) Status Members No Information
--- OUTSIDE RECORDS SUMMARY | 2024-11-30 14:09 | XMS_ITS | Clinical Summary ---
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
--- OUTSIDE RECORDS SUMMARY | 2024-11-30 14:09 | XMS_ITS | Clinical Summary ---
Author Organization [facility] Address [address] [place] [address] Care Team Providers Care Regional Sales Executive Name Role Phone Unavailable Primary Care Provider [...] Td Vaccines ( 1 - Tdap) 1956 Pneumococcal Vaccine: 50+ Ye ars (1 of 1 - PCV) 07/30/1987 Zoster Vaccines (1 of 2) 07/30/1987 RSV Immunization or 60+ Years (1 - 1-dose 75+ series) 2012 COVID-19 Vaccine ( - 2023-2 5 season) 2024 Meningococcal B Vaccine Aged Out No l onger eligible based on patient's age to complete this topic Meningococcal Vaccine Aged Out No yasmin julianna eligible based on patient's age to complete this topic RSV Immunizations Under 20 Months Aged Out No longer eligible based on patient's age to complete this topic
--- OUTSIDE RECORDS SUMMARY | 2024-11-30 14:09 | XMS_ITS | Clinical Summary ---
Author Organization [facility] Address [address] [place] [address] Phone Care Team Providers Care Volleyball Assistant Coach Name Role Phone Rizwan San MD Primary Care Provider [phone] Allergies No known active allergies Medications Multiple [...] and Medium Risk (2 of 3 - PCV20 or PCV21) 06/12/2016 06/13/2015 Influenza Vaccine (#1) 2024 06/13/2015, 2013 Insurance [employer] MED[employer]ARE Care Teams Volleyball Assistant Coach Relationship Specialty Start Date End Date Rizwan San MD [address] [place] [address] PCP - General Internal Medicine 11/13/21
[2024-11-30 19:51] LABS: Alanine Aminotransferase 13 U/L (6-50); Albumin Level 4.1 g/dL (3.5-5.1); Alkaline Phosphatase 173 U/L (38-126); Anion Gap 8 mmol/L (4-12); Aspartate Amino Transferase 35 U/L (17-59); Bilirubin,Total 0.3 mg/dL (0.2-1.3); Blood Urea Nitrogen 53 mg/dL (9-20); Calcium 8.8 mg/dL (8.4-10.2); Carbon Dioxide 21 mmol/L (22-30); Chloride 110 mmol/L (98-107); Cholesterol 190 mg/dL (0-200); Estimated Glomerular Filt Rate 20; Glucose 96 mg/dL (65-110); HDL Direct 70 mg/dL; Potassium 5.4 mmol/L (3.4-5.0); Sodium 139 mmol/L (137-145); Total Protein 7.2 g/dL (6.3-8.2); Triglycerides 107 mg/dL (<150)
[2024-11-30 20:32] LABS: Thyroid Stimulating Hormone Reflex 0.917 uIU/mL (0.465-4.68)
== END 2024-11-30 14:02 | disposition home or self-care (01) ==
LOC: ANHGOSHLAB 14:01
PROVIDERS: PCP Family Medicine; Visit Provider Family Medicine
DX: E78.5 Hyperlipidemia, unspecified (principal)
CPT/HCPCS: 36415; 80053; 80061; 84443

== ENCOUNTER 2024-11-30 14:13 | Outpatient (CLI) | payer MEDICARE, SELFPAY ==
--- NOTE | ~2024-11-30 | XR_ITS ---
EXAMINATION: XR hip LT 2V w AP pelvis, 11/30/2024 14:24 CDT HISTORY: Pain in left hip x 3 weeks, no inj, no surgeries COMPARISON: No comparisons available. Findings: Fixation left femur, no acute fracture identified. Severe degenerative changes Soft tissues unremarkable. Impression: No acute fracture or malalignment. Reviewed, dictated and finalized at location P. Impression: No acute fracture or malalignment.
== END 2024-11-30 14:14 | disposition home or self-care (01) ==
LOC: GOSHIMG 14:13
PROVIDERS: PCP Family Medicine; Visit Provider Family Medicine
DX: M25.552 Pain in left hip (principal)
CPT/HCPCS: 73502

== ENCOUNTER 2024-12-05 10:50 | Outpatient (CLI) | payer MEDICARE, SELFPAY ==
--- OUTSIDE RECORDS SUMMARY | 2024-12-05 12:24 | XMS_ITS | Clinical Summary ---
Author Organization [facility] [address] [place] Address [address] [place] [id number] Care Team Providers Care Bench Inspector Name Role Phone Unknown, Notinfile Primary Care [...] on file Legal Sex Male 3:27 AM [employer] Gender Identity Not on file Sexual Orientation [...] Plan of Treatment Not on file Insurance [employer] [place]AGE [place] [employer] [place] Care Teams Bench Inspector Relationship Specialty Start Date End Date Unknown, Notinfile PCP - General 12/02/21
--- OUTSIDE RECORDS SUMMARY | 2024-12-05 12:24 | XMS_ITS | Clinical Summary ---
Author Organization [facility] Address [address] [place] [id number] Care Team Providers Care Livestock Nutrition Territory Manager Name Role Phone Unavailable Primary Care Provider [...]
[2024-12-05 13:00] LABS: Albumin Level 4.0 g/dL (3.5-5.1); Anion Gap 11 mmol/L (4-12); Blood Urea Nitrogen 53 mg/dL (9-20); Calcium 8.6 mg/dL (8.4-10.2); Carbon Dioxide 21 mmol/L (22-30); Chloride 109 mmol/L (98-107); Estimated Glomerular Filt Rate 18; Glucose 110 mg/dL (65-110); Potassium 4.5 mmol/L (3.4-5.0); Sodium 141 mmol/L (137-145)
[2024-12-05 13:13] LABS: Total Protein Urine Random 26 mg/dL; Ur Ttl Prot Creatinine Ratio 0.33 mg/mg (0-0.20)
== END 2024-12-05 10:51 | disposition home or self-care (01) ==
LOC: ANHGOSHLAB 10:51
PROVIDERS: PCP Family Medicine; Visit Provider Internal Medicine Nephrology
DX: I12.9 Hypertensive chronic kidney disease with stage 1 through stage 4 chronic kidney disease, or unspecified chronic kidney disease (principal); N18.4 Chronic kidney disease, stage 4 (severe)
CPT/HCPCS: 36415; 80069; 82570; 84156